=== PATIENT | male | born 1985 | race Caucasian/White ===

== ENCOUNTER 2018-03-15 23:40 | Emergency (ER) | payer OTHER ==
[2018-03-15] MEDS ORDERED: DEXAMETHASONE 10 MG/ML VIAL PO STA (23:56)
[2018-03-15] MEDS ORDERED: LIDOCAINE PATCH 5% TOP STA (23:56)
[2018-03-15] MEDS ORDERED: CYCLOBENZAPRINE 10 MG Prepack 2 PO PRN (23:56)
[2018-03-15] MEDS ORDERED: KETOROLAC 60 MG/2 ML VIAL IM STA (23:56)
--- NOTE | 2018-03-16 | ED Physician Documentation ---
PD HPI BACK PAIN - Stated complaint Stated Complaint: BACK PX - Chief complaint Chief Complaint: Back Pain - History obtained from History obtained from: Patient - History of Present Illness Timing - onset: How many weeks ago (2) Timing - details: Gradual onset, Still present Location: Lower, Right Quality: Pain, Spasm, Similar to prior episodes Associated symptoms: No: Fever, Weakness, Numbness, Incontinent of urine, Unable to urinate, Hematuria Worsened by: Movement Similar symptoms before: Work up / diagnostics Recently seen: Not recently seen - Additional information Additional information: Patient is a 32 year old male who is presenting to the emergency department for low back pain. Patient states that he injured his back about 8 years ago jumping out of a helicopter. patient states that since that time her gets intermittent back pain and spasm. patient also reports that he has torn meniscus and he thinks that the compensation from the knee pain is making his back work. 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 when he went in for the knee, the provider said they could only address the knee that day. Patient denies any recent trauma, nausea, vomiting, dysuria or incontinence. Review of Systems Ten Systems: 10 systems reviewed and negative GI: denies: Abdominal Pain, Nausea, Vomiting : denies: Frequency, Unable to Void Musculoskeletal: reports: Back pain PD PAST MEDICAL HISTORY - Past Medical History Past Medical History: No Musculoskeletal: Chronic back pain - Past Surgical History Past Surgical History: No - Present Medications Home Medications: Ambulatory Orders Medication Instructions Recorded Confirmed Ibuprofen [Motrin] 800 mg PO Q8H PRN #30 tablet 11/22/13 09/23/14 HYDROcod/ACETAM 5/325 [Vicodin 1 - 2 ea PO Q6H PRN #15 tablet 09/21/14 09/23/14 5/325] Ondansetron Odt [Zofran] 4 mg TL Q6H PRN #10 tablet 09/21/14 09/23/14 Cyclobenzaprine [Flexeril] 10 mg PO TID PRN #10 tablet 03/15/18 Lidocaine Patch 5% [Lidoderm Patch] 1 each TOP DAILY #14 patch 03/15/18 - Allergies Allergies/Adverse Reactions: Allergies Allergy/AdvReac Type Severity Reaction Status Date / Time amoxicillin Allergy Unknown Verified 03/15/18 23:47 Penicillins Allergy Unknown Verified 03/15/18 23:47 - Social History Does the pt smoke?: No Smoking Status: Never smoker Does the pt drink ETOH?: No Does the pt have substance abuse?: No - Immunizations Immunizations are current?: Yes - POLST Patient has POLST: No PD ED PE NORMAL - Vitals Vital signs reviewed: Yes - General General: Alert and oriented X 3, No acute distress - HEENT HEENT: Atraumatic - Cardiac Cardiac: RRR - Respiratory Respiratory: No respiratory distress - Abdomen Abdomen: Soft - Derm Derm: Normal color, Warm and dry - Extremities Extremities: No deformity - Neuro Neuro: No sensory deficit Eye Opening: Spontaneous Motor: Obeys Commands Verbal: Oriented GCS Score: 15 - Psych Psych: Normal mood PD ED PE EXPANDED - Back Back: Soft tissue tenderness (tenderness to palpation near right SI joint with mild hypertonicity) Results - Vitals Vitals: Vital Signs - 24 hr 03/15/18 23:44 Temperature 36.1 C L Heart Rate 70 Respiratory 16 Rate Blood Pressure 137/85 H O2 Saturation 100 Oxygen O2 Source Room air PD MEDICAL DECISION MAKING - ED course Complexity details: reviewed old records, re-evaluated patient, considered differential, d/w patient ED course: patient was seen and examined at bedside. patient was well appearing and walked in without any difficulty. patient had no neurological deficits. patient was treated with toradol, decadron, and lidoderm. Prescriptions were written. Patient required no further inpatient work up and was stable for discharge with outpatient followup. - Sepsis Event Vital Signs: Vital Signs - 24 hr 03/15/18 23:44 Temperature 36.1 C L Heart Rate 70 Respiratory 16 Rate Blood Pressure 137/85 H O2 Saturation 100 Oxygen O2 Source Room air Departure - Departure Disposition: 01 Home, Self Care Clinical Impression: Back pain Condition: Good Instructions: ED Sciatica Follow-Up: Nicole Wheat MD [Primary Care Provider] - Within 1 week Prescriptions: Cyclobenzaprine [Flexeril] 10 mg PO TID PRN #10 tablet PRN Reason: Spasms Lidocaine Patch 5% [Lidoderm Patch] 1 each TOP DAILY #14 patch Comments: Your symptoms are likely secondary to muscle spasm. You should take motrin or tylenol as needed for pain. You should alternate between ice and heat as well as using the lidoderm patches. you can take the flexeril for spams but you cannot drive or operate heavy machinery while taking it. Also you should not take it with any other sedatives including alcohol. You should follow up with your doctor if symptoms persist. You may return to the emergency department at any time for new, worsening or uncontrollable symptoms.
[2018-03-16 00:18] VITALS: BP 136/72
== END 2018-03-16 00:17 | disposition home or self-care (01) ==
LOC: ED 23:40
DX: M54.9 Dorsalgia, unspecified (principal)
CPT/HCPCS: 96372; 99283; A9270